=== PATIENT | male | born 1970 | race Caucasian/White ===

== ENCOUNTER 2017-04-28 22:03 | Inpatient (IN) | payer SELFPAY ==
--- NOTE | 2017-04-28 23:56 | XRay Report ---
FINAL REPORT PROCEDURE: XR FOOT 2V LT TECHNIQUE: LEFT foot radiographs, AP, lateral, and oblique views. CPT 40503 HISTORY: stepped on nail swollen foot.... x2 months COMPARISON: No prior studies are available for comparison. FINDINGS: Fracture (s) and/or Dislocation(s): None . Alignment: Normal . Joint space(s): Normal . Soft tissues: There is generalized soft tissue swelling of the forefoot.. Bone mineralization: Normal . Foreign bodies: None . Calcaneal spurring: None . IMPRESSION: There is no acute bony abnormality. There is no foreign body. There is generalized soft tissue swelling..
--- NOTE | 2017-04-29 00:04 | XRay Report ---
FINAL REPORT PROCEDURE: XR TIBIA FIBULA 2V LT TECHNIQUE: LEFT tibia and fibula radiographs, AP and lateral views. CPT 10151 HISTORY: swollen foot and leg COMPARISON: No prior studies are available for comparison. FINDINGS: Fracture (s) and/or Dislocation(s): None . Joint space(s): Normal . Soft tissues: Normal . Bone mineralization: Normal . Foreign bodies: None . IMPRESSION: Normal Examination.
[2017-04-29 00:09] LABS: BUN/Creatinine Ratio 28; Blood Urea Nitrogen 17 mg/dL (9-20); Calcium 9.1 mg/dL (8.4-10.2); Hemolysis Index 35
[2017-04-29 00:16] LABS: Basophils # (Auto) 0.1 K/mm3 (0.0-0.1); Eosinophils # (Auto) 0.2 K/mm3 (0.0-0.4); Eosinophils % (Auto) 2.2 % (0.0-4.3); Hematocrit 38.3 % (35.5-45.6); Hemoglobin 12.7 gm/dl (11.8-15.2); Lymphocytes # (Auto) 2.3 K/mm3 (1.2-5.4); Lymphocytes % (Auto) 24.8 % (13.4-35.0); Mean Corpuscular HGB Conc 33 % (32-34); Mean Corpuscular Hemoglobin 33 pg (28-32); Mean Corpuscular Volume 100 fl (84-94); Monocytes # (Auto) 0.6 K/mm3 (0.0-0.8); Monocytes % (Auto) 6.9 % (0.0-7.3); Platelet Count 217 K/mm3 (140-440); Red Blood Count 3.82 M/mm3 (3.65-5.03); Red Cell Distribution Width 15.2 % (13.2-15.2)
[2017-04-29] MEDS ORDERED: SUBLIMAZE IV ONE (06:38)
[2017-04-29] MEDS ORDERED: ZOFRAN IV ONE (06:38)
[2017-04-29] MEDS ORDERED: ZOSYN/NS 4.5GM/100ML 4.5 GM/100 ML VIAL IV ONE (06:39)
[2017-04-29] MEDS ORDERED: VANCOMYCIN/NS 1 GM/250 ML 1 GM/250 ML BAG IV ONE (06:39)
--- NOTE | 2017-04-29 06:44 | Emergency Department Report ---
HPI - General Chief Complaint: Extremity Injury, Lower Time Seen by Provider: 04/29/17 06:30 - HPI HPI: Room 4 The patient is a 47-year-old male presenting with a chief complaint of left foot pain and swelling. The patient states approximately 2 months ago he stepped on a nail through his shoe. The patient states his pain and swelling in that foot progressing since the incident occurred. 3 weeks ago the patient states he went to [facility] but states he wasn't given any prescriptions. The patient states over the past week or 2 days noticed drainage from the foot at the past 3 days he has noticed erythema. Patient admits to subjective fever. Patient gives his pain a score of 10/10 Location: Left foot Duration: [See above] Quality: Pain Severity: 10/10 Modifying factors: [see above] Context: [see above] Mode of transportation: [not driving] ED Past Medical Hx - Past Medical History Previous Medical History?: Yes Hx Hypertension: Yes Hx Diabetes: Yes - Surgical History Past Surgical History?: Yes Additional Surgical History: abd sx - Family History Family history: no significant - Social History Smoking Status: Former Smoker ED Review of Systems ROS: Stated complaint: LEFT FOOT PAIN Other details as noted in HPI Constitutional: fever Musculoskeletal: myalgia Skin: rash, change in color Physical Exam - Physical Exam Vital Signs: Vital Signs 04/28/17 04/29/17 04/29/17 22:26 04:39 04:46 Temperature 98.3 F Pulse Rate 103 H 100 H Respiratory 20 18 14 Rate Blood Pressure 153/96 131/88 O2 Sat by Pulse 98 97 Oximetry 04/29/17 04/29/17 04/29/17 05:00 05:30 06:00 Temperature Pulse Rate 90 91 H 91 H Respiratory 15 12 15 Rate Blood Pressure 150/84 151/85 141/90 O2 Sat by Pulse 96 97 97 Oximetry Physical Exam: GENERAL: The patient is well-developed well-nourished male lying on stretcher not apparent to be in acute distress. [] HEENT: Normocephalic. Atraumatic. Extraocular motions are intact. Patient has moist mucous membranes. NECK: Supple. Trachea midline CHEST/LUNGS:There is no respiratory distress noted. HEART/CARDIOVASCULAR: Regular. There is no tachycardia. There is no gallop rub or murmur. 2+ DP left foot ABDOMEN: Abdomen is soft, nontender. Patient has normal bowel sounds. There is no abdominal distention. SKIN: There is swelling and erythema of the left foot with lymphangitic streaking up the medial left silverio. There is no diaphoresis. NEURO: The patient is awake, alert, and oriented. The patient is cooperative. The patient has normal speech MUSCULOSKELETAL: There is no evidence of acute injury. ED Course Vital Signs 04/28/17 04/29/17 04/29/17 22:26 04:39 04:46 Temperature 98.3 F Pulse Rate 103 H 100 H Respiratory 20 18 14 Rate Blood Pressure 153/96 131/88 O2 Sat by Pulse 98 97 Oximetry 04/29/17 04/29/17 04/29/17 05:00 05:30 06:00 Temperature Pulse Rate 90 91 H 91 H Respiratory 15 12 15 Rate Blood Pressure 150/84 151/85 141/90 O2 Sat by Pulse 96 97 97 Oximetry ED Medical Decision Making - Lab Data Result diagrams: 04/28/17 22:45 04/28/17 22:45 - Radiology Data Radiology results: report reviewed (left lower extremity Doppler tech interpretation), image reviewed (left lower extremity Doppler) Left lower extremities Doppler-discuss with tech no evidence of acute DVT/SVT. Left inguinal lymph node enlargement - Differential Diagnosis cellulitis, lymphangitic streaking, DVT Critical care attestation.: If time is entered above; I have spent that time in minutes in the direct care of this critically ill patient, excluding procedure time. ED Disposition Clinical Impression: Cellulitis of left foot Disposition: -09 OP ADMIT IP TO THIS HOSP Is pt being admited?: Yes Does the pt Need Aspirin: No Condition: Fair Referrals: SIVAN CISNEROS MD [Primary Care Provider] - 3-5 Days Time of Disposition: 09:00 (hospitalist paged)
[2017-04-29] MEDS ORDERED: VANCOMYCIN 1,500 MG in NACL 0.9% 500 ML 500 ML IV ONE (08:00)
[2017-04-29] MEDS ORDERED: MORPHINE IV ONE (09:37)
[2017-04-29] MEDS ORDERED: VANCOMYCIN PHARMACY TO DOSE IV SCH (10:00)
[2017-04-29] MEDS ORDERED: ZOFRAN IM PRN (10:01)
[2017-04-29] MEDS ORDERED: D50W (25GM) Syringe IV PRN (10:02)
--- NOTE | 2017-04-29 10:04 | History and Physical Report ---
History of Present Illness Date of examination: 04/29/17 Date of admission: 04/29/2017 Chief complaint: left foot pain and swelling History of present illness: Patient is a 47 years old male with past medical history of diabetes mellitus and hypertension presents to the emergency department with a chief complaint of left foot pain and swelling. The pain and swelling began 2 month ago he stepped on a nail through his shoe. Patient went to [facility] 2 weeks ago but they did not gave him any prescription. Patient does not know if they gave him Tdap shot. He states over the past week 10 days he noticed pus drainage from the foot and the swelling became large with erythema.The pain was described as aching. The pain continued to gradually increase in severity to an 10/10 today to the point cannot walk without pain. The pain was exacerbated with walking or standing. Patient reported subjective fever and chills. Past History Past Medical History: diabetes, hypertension Past Surgical History: No surgical history Social history: denies: smoking, alcohol abuse Family history: hypertension Medications and Allergies Allergies Allergy/AdvReac Type Severity Reaction Status Date / Time No Known Allergies Allergy Unverified 04/28/17 22:25 Home Medications Medication Instructions Recorded Confirmed Last Taken Type No Known Home Medications [No 04/29/17 04/29/17 Unknown History Reported Home Medications] Active Meds: Active Medications Acetaminophen (Tylenol) 650 mg PO Q4H PRN PRN Reason: Pain MILD(1-3)/Fever >100.5/STINSON Bisacodyl (Dulcolax) 10 mg AK QDAY PRN PRN Reason: Constipation unrelieved by MOM Dextrose (D50w (25gm) Syringe) 50 ml IV PRN PRN PRN Reason: Hypoglycemia Enoxaparin Sodium (Lovenox) 40 mg SUB-Q QDAY RICHARD Sodium Chloride (Nacl 0.9% 1000 Ml) 1,000 mls @ 75 mls/hr IV DIRECT RICHARD Piperacillin Sod/Tazobactam Sod (Zosyn/Ns 4.5gm/100ml) 4.5 gm in 100 mls @ 200 mls/hr IV Q6HR RICHARD PRN Reason: Protocol Insulin Aspart (Novolog) 0 units SUB-Q AC RICHARD PRN Reason: Protocol Insulin Aspart (Novolog) 0 units SUB-Q QHS RICHARD PRN Reason: Protocol Morphine Sulfate (Morphine) 2 mg IV Q4H PRN PRN Reason: Pain, Moderate (4-6) Ondansetron HCl (Zofran) 4 mg IM Q4H PRN PRN Reason: Nausea And Vomiting Vancomycin HCl (Vancomycin Pharmacy To Dose) 1 each IV PKCONSULT RICHARD PRN Reason: Protocol Review of Systems Constitutional: fever, chills, sweats, fatigue, weakness, malaise, no weight loss, no weight gain Ears, nose, mouth and throat: no decreased hearing, no nose pain, no nasal congestion, no nasal discharge Cardiovascular: no palpitations, no rapid/irregular heart beat, no syncope Respiratory: no excessive sputum, no hemoptysis, no shortness of breath Genitourinary Male: no hematuria Musculoskeletal: no shooting arm pain, no arm numbness/tingling, no low back pain Integumentary: sores, other (left foot wound) Neurological: no parathesias, no numbness, no tingling, no seizures Psychiatric: no memory loss, no change in sleep habits, no sleep disturbances Endocrine: no cold intolerance, no heat intolerance, no polyphagia, no excessive thirst Hematologic/Lymphatic: no easy bruising, no easy bleeding Allergic/Immunologic: no urticaria, no allergic rhinitis Exam - Constitutional Vitals: Temp Pulse Resp BP Pulse Ox 98.3 F 92 H 13 132/84 95 04/28/17 22:26 04/29/17 08:00 04/29/17 08:42 04/29/17 08:00 04/29/17 08:00 General appearance: Present: no acute distress - EENT Eyes: Present: PERRL ENT: hearing intact - Neck Neck: Present: supple - Respiratory Respiratory effort: normal Respiratory: bilateral: CTA - Cardiovascular Rhythm: regular Heart Sounds: Present: S1 & S2 - Abdominal General gastrointestinal: Present: soft, non-tender Male genitourinary: Present: deferred - Rectal Rectal Exam: deferred - Integumentary Integumentary: Present: clear (swelling and erythema of the left foot with lymphangitic streaking up the medial left silverio) - Musculoskeletal Musculoskeletal: strength equal bilaterally - Psychiatric Psychiatric: appropriate mood/affect - Neurologic Neurologic: moves all extremities - Allied Health Allied health notes reviewed: nursing Results - Labs CBC & Chem 7: 04/28/17 22:45 04/28/17 22:45 Labs: Laboratory Last Values WBC 9.2 K/mm3 (4.5-11.0) 04/28/17 22:45 RBC 3.82 M/mm3 (3.65-5.03) 04/28/17 22:45 Hgb 12.7 gm/dl (11.8-15.2) 04/28/17 22:45 Hct 38.3 % (35.5-45.6) 04/28/17 22:45 MCV 100 fl (84-94) H 04/28/17 22:45 MCH 33 pg (28-32) H 04/28/17 22:45 MCHC 33 % (32-34) 04/28/17 22:45 RDW 15.2 % (13.2-15.2) 04/28/17 22:45 Plt Count 217 K/mm3 (140-440) 04/28/17 22:45 Lymph % (Auto) 24.8 % (13.4-35.0) 04/28/17 22:45 [place] % (Auto) 6.9 % (0.0-7.3) 04/28/17 22:45 Eos % (Auto) 2.2 % (0.0-4.3) 04/28/17 22:45 Baso % (Auto) 1.0 % (0.0-1.8) 04/28/17 22:45 Lymph # 2.3 K/mm3 (1.2-5.4) 04/28/17 22:45 [place] # 0.6 K/mm3 (0.0-0.8) 04/28/17 22:45 Eos # 0.2 K/mm3 (0.0-0.4) 04/28/17 22:45 Baso # 0.1 K/mm3 (0.0-0.1) 04/28/17 22:45 Seg Neutrophils % 65.1 % (40.0-70.0) 04/28/17 22:45 Seg Neutrophils # 6.0 K/mm3 (1.8-7.7) 04/28/17 22:45 VBG pH 7.464 (7.320-7.420) H 04/29/17 06:47 Sodium 127 mmol/L (137-145) L 04/28/17 22:45 Potassium 4.4 mmol/L (3.6-5.0) 04/28/17 22:45 Chloride 92.4 mmol/L (98-107) L 04/28/17 22:45 Carbon Dioxide 18 mmol/L (22-30) L 04/28/17 22:45 Anion Gap 21 mmol/L 04/28/17 22:45 BUN 17 mg/dL (9-20) 04/28/17 22:45 Creatinine 0.6 mg/dL (0.8-1.5) L 04/28/17 22:45 Estimated GFR > 60 ml/min 04/28/17 22:45 BUN/Creatinine Ratio 28 % 04/28/17 22:45 Glucose 483 mg/dL (75-100) H 04/28/17 22:45 Lactic Acid 1.90 mmol/L (0.7-2.0) 04/28/17 22:45 Calcium 9.1 mg/dL (8.4-10.2) 04/28/17 22:45 Assessment and Plan Assessment and plan: Patient is a 47 years old male with past medical history of diabetes mellitus and hypertension presents to the emergency department with a chief complaint of left foot pain and swelling. The pain and swelling began 2 month ago he stepped on a nail through his shoe. Left foot cellulitis Xray of the foot showed soft tissue swelling, no acute bony abnormality. There is no foreign body. with copious drainage of pus Infectious disease consult Initiated with empiric IV Zosyn and vancomycin IV fluid hydration Diabetes mellitus Acute check before meals and at bedtime Sliding scale insulin/NovoLog ADA consistent carbohydrate diet Hyponatremia Most likely due to hyperglycemia IV fluid that will correct it Closely monitor electrolytes DVT prophylaxis Lovenox Advance Directives: Yes VTE prophylaxis?: Chemical Contraindication Mechanical VTE Prophylaxis: Treatment Not Indicated Plan of care discussed with patient/family: Yes
[2017-04-29] MEDS ORDERED: DULCOLAX PR PRN (11:00)
[2017-04-29] MEDS: NOVOLOG SUB-Q SCH ×3 (11:15→23:03)
[2017-04-29] MEDS: LOVENOX SUB-Q SCH (11:15)
[2017-04-29] MEDS ORDERED: BOOSTRIX IM ONE (12:00)
[2017-04-29] MEDS ORDERED: APRESOLINE IV PRN (12:01)
[2017-04-29] MEDS: ZOSYN/NS 4.5GM/100ML 4.5 GM/100 ML VIAL IV SCH ×2 (13:25→17:09)
[2017-04-29] MEDS: MORPHINE IV PRN ×2 (17:20→23:07)
[2017-04-29] MEDS: NACL 0.9% 1000 ML 1,000 ML IV SCH (17:34)
[2017-04-29] MEDS: VANCOMYCIN/NS 1 GM/250 ML 1 GM/250 ML BAG IV SCH (20:25)
[2017-04-30] MEDS: ZOSYN/NS 4.5GM/100ML 4.5 GM/100 ML VIAL IV SCH ×4 (01:19→17:54)
[2017-04-30] MEDS: MORPHINE IV PRN ×3 (06:21→19:36)
[2017-04-30] MEDS: NOVOLOG SUB-Q SCH ×4 (06:41→22:25)
[2017-04-30] MEDS: VANCOMYCIN/NS 1 GM/250 ML 1 GM/250 ML BAG IV SCH ×2 (07:53→19:41)
[2017-04-30 08:50] LABS: Hemoglobin 11.5 gm/dl (11.8-15.2); Mean Corpuscular HGB Conc 35 % (32-34); Mean Corpuscular Hemoglobin 34 pg (28-32); Mean Corpuscular Volume 99 fl (84-94); Platelet Count 223 K/mm3 (140-440); Red Blood Count 3.33 M/mm3 (3.65-5.03); Red Cell Distribution Width 14.7 % (13.2-15.2)
[2017-04-30 09:07] LABS: BUN/Creatinine Ratio 18; Blood Urea Nitrogen 11 mg/dL (9-20); Calcium 8.7 mg/dL (8.4-10.2); Hemolysis Index 2
[2017-04-30] MEDS: NORVASC PO SCH (09:18)
[2017-04-30] MEDS: LOVENOX SUB-Q SCH (09:19)
[2017-04-30] MEDS: NACL 0.9% 1000 ML 1,000 ML IV SCH (09:23)
--- NOTE | 2017-04-30 09:45 | Consultation ---
History of Present Illness - Reason for Consult Consult date: 04/30/17 diabetic foot infection Requesting physician: NIHARIKA DE LEÓN - History of Present Illness 47 years old male with poorly controlled diabetes admitted on 04/29/2017 due to 2 months history of progressive left foot swelling. Patient reports that 2 months ago his stepped on a nail through his shoe. He experienced a small wound that has been draining on and off. However, in the last week, foot has become swollen, tender, and drainage has been evident. See also been complaining of subjective fever. He uses insulin however he does not have a glucometer at home. In the emergency room, initial temperature was 98.3, heart rate 103, blood pressure 153, white count 9.2. Creatinine 0.6. Lactic acid 1.9. Glucose 483. XR foot no osteomyelitis. Microbiology: Blood cultures: 04/29 ngtd Urine cultures: Current Antimicrobials: Zosyn 04/29 Vancomycin 04/29 Previous Antimicrobials: Past History Past Medical History: diabetes, hypertension Past Surgical History: No surgical history Social history: denies: smoking, alcohol abuse Family history: hypertension Medications and Allergies Allergies Allergy/AdvReac Type Severity Reaction Status Date / Time No Known Allergies Allergy Unverified 04/28/17 22:25 Home Medications Medication Instructions Recorded Confirmed Last Taken Type No Known Home Medications [No 04/29/17 04/29/17 Unknown History Reported Home Medications] Active Meds: Active Medications Acetaminophen (Tylenol) 650 mg PO Q4H PRN PRN Reason: Pain MILD(1-3)/Fever >100.5/STINSON Amlodipine Besylate (Norvasc) 10 mg PO QDAY [facility] Last Admin: 04/30/17 09:18 Dose: 10 mg Bisacodyl (Dulcolax) 10 mg OR QDAY PRN PRN Reason: Constipation unrelieved by MOM Dextrose (D50w (25gm) Syringe) 50 ml IV PRN PRN PRN Reason: Hypoglycemia Enoxaparin Sodium (Lovenox) 40 mg SUB-Q QDAY [facility] Last Admin: 04/30/17 09:19 Dose: 40 mg Hydralazine HCl (Apresoline) 10 mg IV Q4H PRN PRN Reason: Blood Pressure Sodium Chloride (Nacl 0.9% 1000 Ml) 1,000 mls @ 75 mls/hr IV DIRECT [facility] Last Admin: 04/30/17 09:23 Dose: 75 mls/hr Piperacillin Sod/Tazobactam Sod (Zosyn/Ns 4.5gm/100ml) 4.5 gm in 100 mls @ 200 mls/hr IV Q6HR [facility] PRN Reason: Protocol Last Admin: 04/30/17 05:06 Dose: 200 mls/hr Vancomycin HCl (Vancomycin/Ns 1 Gm/250 Ml) 1 gm in 250 mls @ 166.667 mls/hr IV Q12H [facility] Last Admin: 04/30/17 07:53 Dose: 166.667 mls/hr Influenza Virus Vaccine Quadrival (Fluarix Quad [id number](36 Mos+) 0.5 ml IM .ONCE ONE Stop: 04/30/17 12:01 Insulin Aspart (Novolog) 0 units SUB-Q AC [facility] PRN Reason: Protocol Last Admin: 04/30/17 06:41 Dose: 10 units Insulin Aspart (Novolog) 0 units SUB-Q QHS [facility] PRN Reason: Protocol Last Admin: 04/29/17 23:03 Dose: 6 units Insulin Human Isoph/Insulin Regular (Novolin 70/30) 12 unit SUB-Q BIDDIAB [facility] Last Admin: 04/30/17 09:18 Dose: 12 unit Morphine Sulfate (Morphine) 2 mg IV Q4H PRN PRN Reason: Pain, Moderate (4-6) Last Admin: 04/30/17 06:21 Dose: 2 mg Ondansetron HCl (Zofran) 4 mg IM Q4H PRN PRN Reason: Nausea And Vomiting Pneumococcal Polyvalent Vaccine (Pneumovax 23) 0.5 ml IM .ONCE ONE Stop: 04/30/17 12:01 Vancomycin HCl (Vancomycin Pharmacy To Dose) 1 each IV PKCONSULT [facility] PRN Reason: Protocol Review of Systems All systems: negative (as per HPI rest neg) Physical Examination - Physical Exam Narrative exam: General appearance: Alert in NAD, conversant Eyes: anicteric sclerae, moist conjunctivae; no lid-lag; PERRLA HENT: Atraumatic; oropharynx clear Neck: Trachea midline; supple, no thyromegaly or lymphadenopathy Lungs: CTA CV: RRR Abdomen: Soft, non-tender; no masses or hepatosplenomegaly Extremities: left foot mid sole edema/tenderness with puncture wound draining purulence, Fourth and fifth toe with interdigital ulcers/maceration Skin: Normal temperature, turgor and texture; no rash, ulcers or subcutaneous nodules Psych: Appropriate affect, alert and oriented to person, place and time. Neuro: alert and oriented x 3. Moving all extermities Lines: No CVL / PICC - Constitutional Vitals: Vital Signs Temp Pulse Resp BP Pulse Ox 98.2 F 83 20 148/90 97 04/30/17 07:23 04/30/17 07:23 04/30/17 07:23 04/30/17 07:23 04/30/17 07:23 Temperature -Last 24 Hours Temperature 98.2 F Temperature 99.5 F Temperature 98.6 F Temperature 99.2 F Temperature 98.3 F Temperature 98.3 F Results - Labs CBC & Chem 7: 04/30/17 08:17 04/30/17 08:17 Labs: Abnormal lab results 04/29/17 04/29/17 04/30/17 Range/Units 16:33 21:28 05:49 RBC (3.65-5.03) M/mm3 Hgb (11.8-15.2) gm/dl Hct (35.5-45.6) % MCV (84-94) fl MCH (28-32) pg MCHC (32-34) % Sodium (137-145) mmol/L Creatinine (0.8-1.5) mg/dL Glucose (75-100) mg/dL POC Glucose 429 H 295 H (70-105) Hemoglobin A1c 11.4 H (4-6) % 04/30/17 04/30/17 04/30/17 Range/Units 06:37 08:17 08:17 RBC 3.33 L (3.65-5.03) M/mm3 Hgb 11.5 L (11.8-15.2) gm/dl Hct 33.0 L (35.5-45.6) % MCV 99 H (84-94) fl MCH 34 H (28-32) pg MCHC 35 H (32-34) % Sodium 134 L D (137-145) mmol/L Creatinine 0.6 L (0.8-1.5) mg/dL Glucose 314 H (75-100) mg/dL POC Glucose 387 H (70-105) Hemoglobin A1c (4-6) % Assessment and Plan Assessment: 1) Left diabetic foot puncture ulcer and forth and fifth toes ulcers: should r/ o osteomyelitis / abscess 2) DM: uncontrolled A1C=11 Plan: -follow-up blood cultures, UA, urine culture -check CRP -Wound care doctor Dr Pradhan -send deep wound cultures -check foot MRI -arterial US -continue zosyn and vancomycin for now Thank you NIMISHA De León for your consultation, will follow up with you. Lovely Avila MD Infectious Diseases Specialist [facility] M [phone] O [phone]
--- NOTE | 2017-04-30 11:34 | Progress Note ---
Assessment and Plan Assessment and plan: Left foot infected diabetic foot ulcer. To rule out osteomyelitis. Contunue Zosyn and Vancomycin. ID Physicain following Diabetes mellitus type 2. Check fingerstick Qac and hs hypertension, BP borderline on Norvasc 10 mg po daily DVT prophylaxis with Lovenox. Full code status History Interval history: Left foot ulcer with pain and swelling, no fever Hospitalist Physical - Physical exam Narrative exam: GEN APPEARANCE : Not in acute distress HEENT: Normocephalic, Atraumatic NECK : supple, no JVD LUNGS: Clear to auscultation bilaterally, no rales, no wheeze HEART: S1 and S2 regular, no murmurs, rubs or gallop, ABD: Soft, non tender, non distended, normal bowel sounds EXT: Left foot covered with dressingg, No edema, no clubbing, no cyanosis NEURO: Awake,alert, oriented x 3 - Constitutional Vitals: Temp Pulse Resp BP Pulse Ox 98.2 F 83 20 148/90 97 04/30/17 07:23 04/30/17 07:23 04/30/17 07:23 04/30/17 07:23 04/30/17 07:23 General appearance: Present: no acute distress Results - Labs CBC & Chem 7: 04/30/17 08:17 04/30/17 08:17 Labs: Laboratory Last Values WBC 9.4 K/mm3 (4.5-11.0) 04/30/17 08:17 RBC 3.33 M/mm3 (3.65-5.03) L 04/30/17 08:17 Hgb 11.5 gm/dl (11.8-15.2) L 04/30/17 08:17 Hct 33.0 % (35.5-45.6) L 04/30/17 08:17 MCV 99 fl (84-94) H 04/30/17 08:17 MCH 34 pg (28-32) H 04/30/17 08:17 MCHC 35 % (32-34) H 04/30/17 08:17 RDW 14.7 % (13.2-15.2) 04/30/17 08:17 Plt Count 223 K/mm3 (140-440) 04/30/17 08:17 Lymph % (Auto) 24.8 % (13.4-35.0) 04/28/17 22:45 [place] % (Auto) 6.9 % (0.0-7.3) 04/28/17 22:45 Eos % (Auto) 2.2 % (0.0-4.3) 04/28/17 22:45 Baso % (Auto) 1.0 % (0.0-1.8) 04/28/17 22:45 Lymph # 2.3 K/mm3 (1.2-5.4) 04/28/17 22:45 [place] # 0.6 K/mm3 (0.0-0.8) 04/28/17 22:45 Eos # 0.2 K/mm3 (0.0-0.4) 04/28/17 22:45 Baso # 0.1 K/mm3 (0.0-0.1) 04/28/17 22:45 Seg Neutrophils % 65.1 % (40.0-70.0) 04/28/17 22:45 Seg Neutrophils # 6.0 K/mm3 (1.8-7.7) 04/28/17 22:45 VBG pH 7.464 (7.320-7.420) H 04/29/17 06:47 Sodium 134 mmol/L (137-145) L D 04/30/17 08:17 Potassium 3.7 mmol/L (3.6-5.0) 04/30/17 08:17 Chloride 98.9 mmol/L (98-107) 04/30/17 08:17 Carbon Dioxide 22 mmol/L (22-30) 04/30/17 08:17 Anion Gap 17 mmol/L 04/30/17 08:17 BUN 11 mg/dL (9-20) 04/30/17 08:17 Creatinine 0.6 mg/dL (0.8-1.5) L 04/30/17 08:17 Estimated GFR > 60 ml/min 04/30/17 08:17 BUN/Creatinine Ratio 18 % 04/30/17 08:17 Glucose 314 mg/dL (75-100) H 04/30/17 08:17 POC Glucose 230 (70-105) H 04/30/17 11:26 Hemoglobin A1c 11.4 % (4-6) H 04/30/17 05:49 Lactic Acid 1.90 mmol/L (0.7-2.0) 04/28/17 22:45 Calcium 8.7 mg/dL (8.4-10.2) 04/30/17 08:17 C-Reactive Protein 1.00 mg/dL (0.00-1.30) 04/30/17 08:17
[2017-04-30] MEDS ORDERED: Fluarix Quad 2017-2018(36 MOS+ IM ONE (12:00)
[2017-04-30] MEDS ORDERED: PNEUMOVAX 23 IM ONE (12:00)
--- NOTE | 2017-04-30 12:47 | Consultation ---
History of Present Illness Consult date: 04/30/17 Reason for consult: other (Diabetic infection, left foot) - History of present illness History of present illness: Asked to see re CC. Past History Past Medical History: diabetes, hypertension Past Surgical History: No surgical history Social history: denies: smoking, alcohol abuse Family history: hypertension Medications and Allergies Allergies Allergy/AdvReac Type Severity Reaction Status Date / Time No Known Allergies Allergy Unverified 04/28/17 22:25 Home Medications Medication Instructions Recorded Confirmed Last Taken Type No Known Home Medications [No 04/29/17 04/29/17 Unknown History Reported Home Medications] Active Meds: Active Medications Acetaminophen (Tylenol) 650 mg PO Q4H PRN PRN Reason: Pain MILD(1-3)/Fever >100.5/[place] Amlodipine Besylate (Norvasc) 10 mg PO QDAY [facility] Last Admin: 04/30/17 09:18 Dose: 10 mg Bisacodyl (Dulcolax) 10 mg DE QDAY PRN PRN Reason: Constipation unrelieved by MOM Dextrose (D50w (25gm) Syringe) 50 ml IV PRN PRN PRN Reason: Hypoglycemia Enoxaparin Sodium (Lovenox) 40 mg SUB-Q QDAY [facility] Last Admin: 04/30/17 09:19 Dose: 40 mg Hydralazine HCl (Apresoline) 10 mg IV Q4H PRN PRN Reason: Blood Pressure Sodium Chloride (Nacl 0.9% 1000 Ml) 1,000 mls @ 75 mls/hr IV DIRECT [facility] Last Admin: 04/30/17 09:23 Dose: 75 mls/hr Piperacillin Sod/Tazobactam Sod (Zosyn/Ns 4.5gm/100ml) 4.5 gm in 100 mls @ 200 mls/hr IV Q6HR [facility]ARD PRN Reason: Protocol Last Admin: 04/30/17 12:16 Dose: 200 mls/hr Vancomycin HCl (Vancomycin/Ns 1 Gm/250 Ml) 1 gm in 250 mls @ 166.667 mls/hr IV Q12H [facility] Last Admin: 04/30/17 07:53 Dose: 166.667 mls/hr Insulin Aspart (Novolog) 0 units SUB-Q AC [facility] PRN Reason: Protocol Last Admin: 04/30/17 12:17 Dose: 4 units Insulin Aspart (Novolog) 0 units SUB-Q QHS [facility] PRN Reason: Protocol Last Admin: 04/29/17 23:03 Dose: 6 units Insulin Human Isoph/Insulin Regular (Novolin 70/30) 12 unit SUB-Q BIDDIAB [facility] Last Admin: 04/30/17 09:18 Dose: 12 unit Morphine Sulfate (Morphine) 2 mg IV Q4H PRN PRN Reason: Pain, Moderate (4-6) Last Admin: 04/30/17 12:15 Dose: 2 mg Ondansetron HCl (Zofran) 4 mg IM Q4H PRN PRN Reason: Nausea And Vomiting Vancomycin HCl (Vancomycin Pharmacy To Dose) 1 each IV PKCONSULT [facility] PRN Reason: Protocol Review of Systems All systems: negative Exam Vital Signs Temp Pulse Resp BP Pulse Ox 98.3 F 103 H 20 153/96 98 04/28/17 22:26 04/28/17 22:26 04/28/17 22:26 04/28/17 22:26 04/28/17 22:26 - Extremities Extremities: abnormal (Left foot is edematous. There is a drop of pus exuding from the dorsum of the left foot just proximal to the 5th MTP joint. The exudation of pus cannot be increased with pressure on the 4th-5th interphalangeal space or with pressure on the plantar aspect of the foot. DP pulse is 2+.) Results - Labs 04/30/17 08:17 04/30/17 08:17 Abnormal lab results 04/29/17 04/29/17 04/30/17 Range/Units 16:33 21:28 05:49 RBC (3.65-5.03) M/mm3 Hgb (11.8-15.2) gm/dl Hct (35.5-45.6) % MCV (84-94) fl MCH (28-32) pg MCHC (32-34) % Sodium (137-145) mmol/L Creatinine (0.8-1.5) mg/dL Glucose (75-100) mg/dL POC Glucose 429 H 295 H (70-105) Hemoglobin A1c 11.4 H (4-6) % 04/30/17 04/30/17 04/30/17 Range/Units 06:37 08: 08:17 RBC 3.33 L (3.65-5.03) M/mm3 Hgb 11.5 L (11.8-15.2) gm/dl Hct 33.0 L (35.5-45.6) % MCV 99 H (84-94) fl MCH 34 H (28-32) pg MCHC 35 H (32-34) % Sodium 134 L D (137-145) mmol/L Creatinine 0.6 L (0.8-1.5) mg/dL Glucose 314 H (75-100) mg/dL POC Glucose 387 H (70-105) Hemoglobin A1c (4-6) % 04/30/17 Range/Units 11:26 RBC (3.65-5.03) M/mm3 Hgb (11.8-15.2) gm/dl Hct (35.5-45.6) % MCV (84-94) fl MCH (28-32) pg MCHC (32-34) % Sodium (137-145) mmol/L Creatinine (0.8-1.5) mg/dL Glucose (75-100) mg/dL POC Glucose 230 H (70-105) Hemoglobin A1c (4-6) % Diabetes panel 04/30/17 04/30/17 Range/Units 05:49 08:17 Sodium 134 L D (137-145) mmol/L Potassium 3.7 (3.6-5.0) mmol/L Chloride 98.9 (98-107) mmol/L Carbon Dioxide 22 (22-30) mmol/L BUN 11 (9-20) mg/dL Creatinine 0.6 L (0.8-1.5) mg/dL Glucose 314 H (75-100) mg/dL Hemoglobin A1c 11.4 H (4-6) % Calcium 8.7 (8.4-10.2) mg/dL Calcium panel 04/30/17 Range/Units 08:17 Calcium 8.7 (8.4-10.2) mg/dL Pituitary panel 04/30/17 Range/Units 08:17 Sodium 134 L D (137-145) mmol/L Potassium 3.7 (3.6-5.0) mmol/L Chloride 98.9 (98-107) mmol/L Carbon Dioxide 22 (22-30) mmol/L BUN 11 (9-20) mg/dL Creatinine 0.6 L (0.8-1.5) mg/dL Glucose 314 H (75-100) mg/dL Calcium 8.7 (8.4-10.2) mg/dL Adrenal panel 04/30/17 Range/Units 08:17 Sodium 134 L D (137-145) mmol/L Potassium 3.7 (3.6-5.0) mmol/L Chloride 98.9 (98-107) mmol/L Carbon Dioxide 22 (22-30) mmol/L BUN 11 (9-20) mg/dL Creatinine 0.6 L (0.8-1.5) mg/dL Glucose 314 H (75-100) mg/dL Calcium 8.7 (8.4-10.2) mg/dL - Imaging Additional studies: Lower extremity arterial dopplers were just performed and were unremarkable. He is now going for a MRI of his left foot. Assessment and Plan - Patient Problems (1) Cellulitis of left foot Current Visit: Yes Status: Acute Plan to address problem: 1) Agree with left foot MRI 2) Agree with ID consult 3) Strict DM control 4) Further recommendations to follow pending result of MRI.
[2017-05-01] MEDS: NACL 0.9% 1000 ML 1,000 ML IV SCH ×2 (00:48→22:45)
[2017-05-01] MEDS: ZOSYN/NS 4.5GM/100ML 4.5 GM/100 ML VIAL IV SCH ×5 (00:49→23:01)
[2017-05-01] MEDS: MORPHINE IV PRN (05:44)
[2017-05-01] MEDS: NOVOLOG SUB-Q SCH ×4 (07:30→21:27)
--- NOTE | 2017-05-01 08:55 | Magnetic Resonance Report ---
FINAL REPORT EXAM: MR LE NONJOINT LT WO/W CON HISTORY: left foot diabetic wound eval for osteomyelitis TECHNIQUE: Multisequence, multiplanar MR imaging is obtained through left foot prior and subsequent to intravenous administration of gadolinium contrast PRIORS: Left foot radiographs 04/28/2017 FINDINGS: Extensive edema and enhancement at the plantar aspect of the lateral forefoot is most focal subjacent to the 4th and 5th metatarsophalangeal joints and proximal phalanges and extends into the dorsal soft tissues through the 4th and 5th webspace. In the 4th proximal phalanx there is significantly decreased T1 weighted signal, which is nearly confluent with surrounding edema on axial series 7, image 9. Enhancement is seen this region on axial series 9, image 10. Similar but slightly more mild findings are present in the 5th proximal phalanx. No focal organized soft tissue abscess. At the lateral aspect of the talar dome there is a focal 3 x 4 millimeter area of edema. The overlying chondral surface appears intact, and there is no undermining fluid signal. There are multiple ill-defined areas of edema in the midfoot and hindfoot including in the lateral calcaneus, the majority of the navicular bone, minimally within the cuboid and scattered within the cuneiforms. No confluent low T1 weighted signal is seen in the bones of the midfoot and hindfoot. The peroneal and extensor tendons, and the tendons of the tarsal tunnel appear intact. IMPRESSION: Left 4th and 5th toe osteomyelitis. There is phlegmonous fluid at the plantar aspect of the 4th and 5th toes extending into the dorsal soft tissues through the webspace. No focal organized fluid collection to suggest soft tissue abscess at this time. Scattered mild areas of midfoot and hindfoot edema may be stress related from gait disturbance or secondary to diabetic neuropathy or angiopathy. Lateral talar dome osteochondral lesion measuring 3 x 4 millimeters with low grade morphology. Notification initiated via [employer] learning support resource room teacher immediately following this dictation on 05/01/2017.
[2017-05-01] MEDS: VANCOMYCIN/NS 1 GM/250 ML 1 GM/250 ML BAG IV SCH ×2 (08:57→17:59)
[2017-05-01] MEDS: LOVENOX SUB-Q SCH (09:02)
[2017-05-01] MEDS: NORVASC PO SCH (09:02)
--- NOTE | 2017-05-01 10:48 | Progress Note ---
Assessment and Plan Assessment: 1) Left diabetic foot puncture ulcer and forth and fifth toes ulcers/ ostemyelitis -MRI showed 4&5th toes osteomyelitis and small phlegmonous collection plantar to the 4th/5th otes extending to soft tissue webs spaces -CRP=1 -Art US normal 2) DM: uncontrolled A1C=11 3) Non insurance status Plan: -appreciate Wound care doctor Dr Lorne shabazz -as possible opbtain deep tissue cultures -continue zosyn and vancomycin for now -PICC line -upon discharge will arrange - zosyn 4.5 g IV q 8h and zyvox 600 mg PO q12h total 4 weeks until 05/27/17. If a tissue culture isolates an organism we will be able to narrow down. Appreciate case management input. I will be off tomorrow, but available over the phone. Thank you NIMISHA Posadas for your consultation, will follow up with you. Lovely Avila MD Infectious Diseases Specialist [facility], [place] [facility] ([facility]) M [phone] O [phone] Subjective Date of service: 05/01/17 Principal diagnosis: diabetic foot infection Interval history: Feels ok still c/o left foot throbbing pain. No fever. Microbiology: Blood cultures: 04/29 ngtd Urine cultures: Current Antimicrobials: Zosyn 04/29 Vancomycin 04/29 Objective - Exam Narrative Exam: General appearance: Alert in NAD, conversant Eyes: anicteric sclerae, moist conjunctivae; no lid-lag; PERRLA HENT: Atraumatic; oropharynx clear Neck: Trachea midline; supple, no thyromegaly or lymphadenopathy Lungs: CTA CV: RRR Abdomen: Soft, non-tender; no masses or hepatosplenomegaly Extremities: left foot mid sole edema/tenderness with puncture wound draining purulence, Fourth and fifth toe with interdigital ulcers/maceration Skin: Normal temperature, turgor and texture; no rash, ulcers or subcutaneous nodules Psych: Appropriate affect, alert and oriented to person, place and time. Neuro: alert and oriented x 3. Moving all extermities Lines: No CVL / PICC - Constitutional Vitals: Vital Signs Temp Pulse Resp BP Pulse Ox 98.6 F 105 H 20 147/85 98 05/01/17 07:51 05/01/17 07:51 05/01/17 07:51 05/01/17 07:51 05/01/17 07:51 Temperature -Last 24 Hours Temperature 98.6 F Temperature 98.7 F Temperature 97.9 F - Labs CBC & Chem 7: 04/30/17 08:17 04/30/17 08:17 Labs: Abnormal lab results 04/30/17 04/30/17 04/30/17 Range/Units 11:26 17:42 21:27 POC Glucose 230 H 343 H 273 H (70-105) 05/01/17 Range/Units 05:42 POC Glucose 175 H (70-105)
--- NOTE | 2017-05-01 13:11 | Progress Note ---
Assessment and Plan Assessment and plan: Left foot infected diabetic foot ulcer and osteomyelitis 4th and 5th toes. MRI revealed osteomyelitis. Continue Zosyn and Vancomycin. ID Physicain and Dr. Pradhan, surgeon following. Diabetes mellitus type 2 uncontrolled. Will increase to Novolin 70/30 to 16 Units bid from 12 Units bid. Continue to check fingerstick Qac and hs Hypertension. Continue Norvasc 10 mg po daily. May add a second agent if BP not controlled DVT prophylaxis with Lovenox. Full code status History Interval history: Left foot ulcer with pain and swelling, no fever Hospitalist Physical - Physical exam Narrative exam: GEN APPEARANCE : Not in acute distress,lying in bed HEENT: Normocephalic, Atraumatic NECK : supple, no JVD LUNGS: Clear to auscultation bilaterally, no rales, no wheeze HEART: S1 and S2 regular, no murmurs, rubs or gallop, ABD: Soft, non tender, non distended, normal bowel sounds EXT: Left foot swollen, ulcer, no clubbing, no cyanosis NEURO: Awake,alert, oriented x 3. No focal neurological signs - Constitutional Vitals: Temp Pulse Resp BP Pulse Ox 98.6 F 105 H 20 147/85 98 05/01/17 07:51 05/01/17 07:51 05/01/17 07:51 05/01/17 07:51 05/01/17 07:51 Results - Labs CBC & Chem 7: 04/30/17 08:17 04/30/17 08:17 Labs: Laboratory Last Values WBC 9.4 K/mm3 (4.5-11.0) 04/30/17 08:17 RBC 3.33 M/mm3 (3.65-5.03) L 04/30/17 08:17 Hgb 11.5 gm/dl (11.8-15.2) L 04/30/17 08:17 Hct 33.0 % (35.5-45.6) L 04/30/17 08:17 MCV 99 fl (84-94) H 04/30/17 08:17 MCH 34 pg (28-32) H 04/30/17 08:17 MCHC 35 % (32-34) H 04/30/17 08:17 RDW 14.7 % (13.2-15.2) 04/30/17 08:17 Plt Count 223 K/mm3 (140-440) 04/30/17 08:17 Lymph % (Auto) 24.8 % (13.4-35.0) 04/28/17 22:45 [place] % (Auto) 6.9 % (0.0-7.3) 04/28/17 22:45 Eos % (Auto) 2.2 % (0.0-4.3) 04/28/17 22:45 Baso % (Auto) 1.0 % (0.0-1.8) 04/28/17 22:45 Lymph # 2.3 K/mm3 (1.2-5.4) 04/28/17 22:45 [place] # 0.6 K/mm3 (0.0-0.8) 04/28/17 22:45 Eos # 0.2 K/mm3 (0.0-0.4) 04/28/17 22:45 Baso # 0.1 K/mm3 (0.0-0.1) 04/28/17 22:45 Seg Neutrophils % 65.1 % (40.0-70.0) 04/28/17 22:45 Seg Neutrophils # 6.0 K/mm3 (1.8-7.7) 04/28/17 22:45 VBG pH 7.464 (7.320-7.420) H 04/29/17 06:47 Sodium 134 mmol/L (137-145) L D 04/30/17 08:17 Potassium 3.7 mmol/L (3.6-5.0) 04/30/17 08:17 Chloride 98.9 mmol/L (98-107) 04/30/17 08:17 Carbon Dioxide 22 mmol/L (22-30) 04/30/17 08:17 Anion Gap 17 mmol/L 04/30/17 08:17 BUN 11 mg/dL (9-20) 04/30/17 08:17 Creatinine 0.6 mg/dL (0.8-1.5) L 04/30/17 08:17 Estimated GFR > 60 ml/min 04/30/17 08:17 BUN/Creatinine Ratio 18 % 04/30/17 08:17 Glucose 314 mg/dL (75-100) H 04/30/17 08:17 POC Glucose 254 (70-105) H 05/01/17 11:43 Hemoglobin A1c 11.4 % (4-6) H 04/30/17 05:49 Lactic Acid 1.90 mmol/L (0.7-2.0) 04/28/17 22:45 Calcium 8.7 mg/dL (8.4-10.2) 04/30/17 08:17 C-Reactive Protein 1.00 mg/dL (0.00-1.30) 04/30/17 08:17 Vancomycin Trough 7.1 ug/mL (5.0-20.0) 05/01/17 06:45
--- NOTE | 2017-05-01 19:02 | Progress Note ---
Assessment and Plan - Patient Problems (1) Cellulitis of left foot Current Visit: Yes Status: Acute Plan to address problem: 1) Continue elevation 2) Strict DM control 3) Continue antibiotics Subjective Date of service: 05/01/17 Patient Reports: Positive: no new complaints Objective Vital Signs - 12hr 05/01/17 05/01/17 07:51 15:56 Temperature 98.6 F 98.4 F Pulse Rate 105 H 89 Respiratory 20 20 Rate Blood Pressure 147/85 133/73 O2 Sat by Pulse 98 100 Oximetry - Musculoskeletal other (Left foot exam is without change.) - Labs 04/30/17 08:17 04/30/17 08:17 - Imaging Additional Studies: MRI of left foot done yesterday was reviewed.
[2017-05-02] MEDS: VANCOMYCIN/NS 1 GM/250 ML 1 GM/250 ML BAG IV SCH ×3 (01:31→17:02)
[2017-05-02] MEDS: ZOSYN/NS 4.5GM/100ML 4.5 GM/100 ML VIAL IV SCH ×4 (05:46→23:50)
[2017-05-02 06:51] LABS: Hematocrit 32.7 % (35.5-45.6); Hemoglobin 11.1 gm/dl (11.8-15.2); Mean Corpuscular HGB Conc 34 % (32-34); Mean Corpuscular Hemoglobin 33 pg (28-32); Mean Corpuscular Volume 98 fl (84-94); Platelet Count 245 K/mm3 (140-440); Red Blood Count 3.33 M/mm3 (3.65-5.03); Red Cell Distribution Width 14.8 % (13.2-15.2)
[2017-05-02 07:05] LABS: BUN/Creatinine Ratio 26; Blood Urea Nitrogen 13 mg/dL (9-20); Calcium 8.6 mg/dL (8.4-10.2); Hemolysis Index 5
[2017-05-02] MEDS: NOVOLOG SUB-Q SCH ×4 (08:09→22:47)
[2017-05-02] MEDS: LOVENOX SUB-Q SCH (10:15)
[2017-05-02] MEDS: NORVASC PO SCH (10:15)
--- NOTE | 2017-05-02 11:30 | Progress Note ---
Assessment and Plan Left foot infected diabetic foot ulcer and osteomyelitis 4th and 5th toes. MRI revealed osteomyelitis. Continue Zosyn and Vancomycin. ID Physicain and Dr. Pradhan, surgeon following. Diabetes mellitus type 2 uncontrolled. cont Novolin 70/30 to 22 Units bid . Continue acuchecks AC & HS with ISS Hypertension. Continue Norvasc 10 mg po daily. unclear why patient is not on ACEI or ARB. ( no hx of allergy)will start on lisinopril 10 mg Normocytic anemia: H&H stable DVT prophylaxis with Lovenox. Subjective Date of service: 05/02/17 Principal diagnosis: diabetic foot infection Interval history: Patient is awake and alert Offers no specific complaints except mild pain in the left foot ID and general surgery note reviewed and appreciated Objective - Constitutional Vitals: Vital Signs - 12hr 05/02/17 08:06 Temperature 98.3 F Pulse Rate 81 Respiratory 20 Rate Blood Pressure 158/93 O2 Sat by Pulse 97 Oximetry General appearance: Present: no acute distress - EENT Eyes: PERRL, EOM intact ENT: hearing intact, clear oral mucosa - Neck Neck: supple, normal ROM, no masses or JVD - Respiratory Respiratory effort: normal Respiratory: bilateral: CTA - Cardiovascular Rhythm: regular Heart Sounds: Present: S1 & S2 Extremity abnormal: edema (left pedal edema and open wound under left fourth toe with a dressing) - Gastrointestinal General gastrointestinal: Present: soft, non-tender. Absent: hepatomegaly, splenomegaly Rectal Exam: deferred - Neurologic Neurologic: CNII-XII intact, no focal deficits - Psychiatric Psychiatric: appropriate mood/affect - Labs CBC & Chem 7: 05/02/17 05:28 05/02/17 05:28 Labs: Abnormal lab results 05/01/17 05/01/17 05/01/17 Range/Units 11:43 16:06 21:20 RBC (3.65-5.03) M/mm3 Hgb (11.8-15.2) gm/dl Hct (35.5-45.6) % MCV (84-94) fl MCH (28-32) pg Creatinine (0.8-1.5) mg/dL Glucose (75-100) mg/dL POC Glucose 254 H 338 H 142 H (70-105) 05/02/17 05/02/17 05/02/17 Range/Units 05:28 05:28 06:11 RBC 3.33 L (3.65-5.03) M/mm3 Hgb 11.1 L (11.8-15.2) gm/dl Hct 32.7 L (35.5-45.6) % MCV 98 H (84-94) fl MCH 33 H (28-32) pg Creatinine 0.5 L (0.8-1.5) mg/dL Glucose 307 H (75-100) mg/dL POC Glucose 316 H (70-105)
[2017-05-02] MEDS: MORPHINE IV PRN (12:51)
--- NOTE | 2017-05-02 15:12 | Vascular Lab Report ---
LOWER EXTREMITY ARTERIAL DUPLEX: REASON FOR EXAM: Diabetic wounds. COMMENTS ON THE RIGHT: Triphasic waveforms are seen proximally. Triphasic waveforms are seen distally. No significant velocity gradients are identified. No focal significant plaque is identified. Findings are consistent with normal perfusion. Findings are consistent with the ability to heal distal wounds. COMMENTS ON THE LEFT: Triphasic waveforms are seen proximally. Triphasic waveforms are seen distally. No significant velocity gradients are identified. No focal significant plaque is identified. Findings are consistent with normal perfusion. Findings are consistent with the ability to heal distal wounds. IMPRESSION: RIGHT: Essentially normal arterial flow. LEFT:Essentially normal arterial flow.
[2017-05-02] MEDS: NACL 0.9% 1000 ML 1,000 ML IV SCH (17:02)
[2017-05-02] MEDS: TYLENOL PO PRN (23:02)
[2017-05-03] MEDS: VANCOMYCIN/NS 1 GM/250 ML 1 GM/250 ML BAG IV SCH ×3 (02:38→18:13)
[2017-05-03] MEDS: TYLENOL PO PRN ×2 (05:18→23:40)
[2017-05-03] MEDS: ZOSYN/NS 4.5GM/100ML 4.5 GM/100 ML VIAL IV SCH ×4 (05:23→23:27)
[2017-05-03] MEDS: NOVOLOG SUB-Q SCH ×4 (08:54→23:41)
[2017-05-03] MEDS ORDERED: NORVASC PO SCH (09:51)
--- NOTE | 2017-05-03 09:56 | Progress Note ---
Assessment and Plan Assessment and plan: Left foot infected diabetic foot ulcer and osteomyelitis 4th and 5th toes. MRI revealed osteomyelitis. Continue Zosyn and Vancomycin. ID Physicain and Dr. Pradhan, surgeon following. Diabetes mellitus type 2 : fair. cont Novolin 70/30 to 22 Units bid . Continue acuchecks AC & HS with ISS Hypertension. Fair. decrease Norvasc 5 mg po daily. unclear why patient is not on ACEI or ARB. ( no hx of allergy)will start on lisinopril 10 mg Normocytic anemia: H&H stable DVT prophylaxis with Lovenox. Subjective Date of service: 05/03/17 Principal diagnosis: diabetic foot infection Interval history: Patient is awake and alert Offers no specific complaints and denies any pain in the foot ID and general surgery note reviewed and appreciated Objective - Constitutional Vitals: Vital Signs - 12hr 05/02/17 05/02/17 05/03/17 22:00 23:02 00:02 Temperature Pulse Rate Respiratory 20 20 Rate Respiratory 20 Rate [Left Leg] Blood Pressure O2 Sat by Pulse Oximetry 05/03/17 05/03/17 05/03/17 05:18 06:18 07:57 Temperature 98.3 F Pulse Rate 83 Respiratory 22 20 20 Rate Respiratory Rate [Left Leg] Blood Pressure 137/83 O2 Sat by Pulse 97 Oximetry General appearance: Present: no acute distress - EENT Eyes: PERRL, EOM intact ENT: hearing intact, clear oral mucosa, no thrush - Neck Neck: supple, normal ROM, no masses or JVD - Respiratory Respiratory effort: normal Respiratory: bilateral: CTA - Cardiovascular Rhythm: regular Heart Sounds: Present: S1 & S2 Extremity abnormal: edema (left foot with open wound under the fourth toe and minimal discharge) - Gastrointestinal General gastrointestinal: Present: soft, non-tender Rectal Exam: deferred - Musculoskeletal Musculoskeletal: strength equal bilaterally - Neurologic Neurologic: no focal deficits - Psychiatric Psychiatric: appropriate mood/affect - Labs CBC & Chem 7: 05/02/17 05:28 05/02/17 05:28 Labs: Abnormal lab results 05/02/17 05/02/17 05/03/17 Range/Units 11:33 16:22 07:13 POC Glucose 234 H 147 H 252 H (70-105)
[2017-05-03] MEDS ORDERED: ZESTRIL PO SCH ×2 (10:00)
[2017-05-03] MEDS: NACL 0.9% 1000 ML 1,000 ML IV SCH (10:46)
[2017-05-03] MEDS: NORVASC PO SCH (10:48)
[2017-05-03] MEDS: ZESTRIL PO SCH (10:48)
[2017-05-03] MEDS: LOVENOX SUB-Q SCH (10:53)
--- NOTE | 2017-05-03 10:59 | XRay Report ---
Portable chest: Line placement. A left PICC line has been introduced. The tip is in the right atrium. Withdrawing approximately [address] it in the mid SVC. The mediastinal contour is unremarkable. The lungs are clear. Impression: PICC line tip in right atrium.
--- NOTE | 2017-05-03 13:14 | XRay Report ---
Portable chest: PICC line positioning. Comparison is made to the prior examination of 10:40 AM. The left PICC line has been withdrawn from the right atrium and is currently in good position near the mid SVC. The cardiopulmonary findings are not otherwise remarkable or changed.
--- NOTE | 2017-05-03 16:43 | Progress Note ---
Assessment and Plan Assessment: 1) Left diabetic foot puncture ulcer and forth and fifth toes ulcers/ ostemyelitis -MRI showed 4&5th toes osteomyelitis and small phlegmonous collection plantar to the 4th/5th otes extending to soft tissue webs spaces -CRP=1 -Art US normal 2) DM: uncontrolled A1C=11 3) Non insurance status Plan: -continue zosyn and vancomycin for now -upon discharge will arrange - zosyn 4.5 g IV q 8h and zyvox 600 mg PO q12h total 4 weeks until 05/27/17. If a tissue culture isolates an organism we will be able to narrow down. Thank you [place] for your consultation, will follow up with you. Lovely Avila MD Infectious Diseases Specialist [facility] ([facility]) M [phone] O [phone] Subjective Date of service: 05/03/17 Principal diagnosis: diabetic foot infection Interval history: Feels better, foot pain resolved. No fever. Microbiology: Blood cultures: 04/29 ngtd Urine cultures: Current Antimicrobials: Zosyn 04/29 Vancomycin 04/29 Objective - Exam Narrative Exam: General appearance: Alert in NAD, conversant Eyes: anicteric sclerae, moist conjunctivae; no lid-lag; PERRLA HENT: Atraumatic; oropharynx clear Neck: Trachea midline; supple, no thyromegaly or lymphadenopathy Lungs: CTA CV: RRR Abdomen: Soft, non-tender; no masses or hepatosplenomegaly Extremities: left foot mid sole edema/tenderness with puncture wound draining purulence, Fourth and fifth toe with interdigital ulcers/maceration Skin: Normal temperature, turgor and texture; no rash, ulcers or subcutaneous nodules Psych: Appropriate affect, alert and oriented to person, place and time. Neuro: alert and oriented x 3. Moving all extermities Lines: No CVL / PICC - Constitutional Vitals: Vital Signs Temp Pulse Resp BP Pulse Ox 99.0 F 98 H 20 134/85 100 05/03/17 15:08 05/03/17 15:08 05/03/17 15:08 05/03/17 15:08 05/03/17 15:08 Temperature -Last 24 Hours Temperature 99.0 F Temperature 98.3 F - Labs CBC & Chem 7: 05/02/17 05:28 05/02/17 05:28 Labs: Abnormal lab results 05/03/17 05/03/17 Range/Units 07:13 11:07 POC Glucose 252 H 321 H (70-105)
[2017-05-03] MEDS: MORPHINE IV PRN (23:27)
[2017-05-04] MEDS: VANCOMYCIN/NS 1 GM/250 ML 1 GM/250 ML BAG IV SCH ×2 (01:25→11:21)
[2017-05-04 06:10] LABS: Hematocrit 31.9 % (35.5-45.6); Mean Corpuscular HGB Conc 35 % (32-34); Mean Corpuscular Hemoglobin 34 pg (28-32); Mean Corpuscular Volume 98 fl (84-94); Platelet Count 244 K/mm3 (140-440); Red Blood Count 3.25 M/mm3 (3.65-5.03); Red Cell Distribution Width 14.6 % (13.2-15.2)
[2017-05-04 06:31] LABS: BUN/Creatinine Ratio 18; Blood Urea Nitrogen 9 mg/dL (9-20); Calcium 8.4 mg/dL (8.4-10.2); Hemolysis Index 1
[2017-05-04] MEDS: ZOSYN/NS 4.5GM/100ML 4.5 GM/100 ML VIAL IV SCH ×3 (06:58→18:38)
[2017-05-04] MEDS: MORPHINE IV PRN ×2 (07:26→17:06)
[2017-05-04] MEDS: NOVOLOG SUB-Q SCH ×4 (08:54→21:46)
[2017-05-04] MEDS: TYLENOL PO PRN ×2 (09:02→22:29)
[2017-05-04] MEDS: NORVASC PO SCH (10:09)
[2017-05-04] MEDS: ZESTRIL PO SCH (10:09)
[2017-05-04] MEDS: LOVENOX SUB-Q SCH (10:09)
--- NOTE | 2017-05-04 11:58 | Progress Note ---
Assessment and Plan Assessment: 1) Left diabetic foot puncture ulcer and forth and fifth toes ulcers/ osteomyelitis -MRI showed 4&5th toes osteomyelitis and small phlegmonous collection plantar to the 4th/5th otes extending to soft tissue webs spaces -CRP=1 -Art US normal 2) DM: uncontrolled A1C=11 3) Non insurance status Plan: -continue zosyn and vancomycin for now -upon discharge will arrange - zosyn 4.5 g IV q 8h and zyvox 600 mg PO q12h total 4 weeks until 05/27/17. If a tissue culture isolates an organism we will be able to narrow down Thank you Thalia for your consultation, will follow up with you. Lovely Avila MD Infectious Diseases Specialist [facility] [phone] O [phone] Subjective Date of service: 05/04/17 Principal diagnosis: diabetic foot infection Interval history: Feels better, foot pain resolved. No fever. Microbiology: Blood cultures: 04/29 ngtd Urine cultures: Current Antimicrobials: Zosyn 04/29 Vancomycin 04/29 Objective - Exam Narrative Exam: General appearance: Alert in NAD, conversant Eyes: anicteric sclerae, moist conjunctivae; no lid-lag; PERRLA HENT: Atraumatic; oropharynx clear Neck: Trachea midline; supple, no thyromegaly or lymphadenopathy Lungs: CTA CV: RRR Abdomen: Soft, non-tender; no masses or hepatosplenomegaly Extremities: left foot mid sole edema/tenderness with puncture wound draining purulence, Fourth and fifth toe with interdigital ulcers/maceration Skin: Normal temperature, turgor and texture; no rash, ulcers or subcutaneous nodules Psych: Appropriate affect, alert and oriented to person, place and time. Neuro: alert and oriented x 3. Moving all extermities Lines: No CVL / PICC - Constitutional Vitals: Vital Signs Temp Pulse Resp BP Pulse Ox 98.9 F 81 20 147/86 97 05/04/17 08:54 05/04/17 08:54 05/04/17 10:00 05/04/17 10:09 05/04/17 08:54 Temperature -Last 24 Hours Temperature 98.9 F Temperature 99.0 F Temperature 99.0 F - Labs CBC & Chem 7: 05/04/17 05:22 05/04/17 05:22 Labs: Abnormal lab results 05/03/17 05/03/17 05/04/17 Range/Units 16:42 21:38 05:22 RBC 3.25 L (3.65-5.03) M/mm3 Hgb 11.0 L (11.8-15.2) gm/dl Hct 31.9 L (35.5-45.6) % MCV 98 H (84-94) fl MCH 34 H (28-32) pg MCHC 35 H (32-34) % Potassium (3.6-5.0) mmol/L Carbon Dioxide (22-30) mmol/L Creatinine (0.8-1.5) mg/dL Glucose (75-100) mg/dL POC Glucose 267 H 121 H (70-105) 05/04/17 05/04/17 Range/Units 05:22 05:36 RBC (3.65-5.03) M/mm3 Hgb (11.8-15.2) gm/dl Hct (35.5-45.6) % MCV (84-94) fl MCH (28-32) pg MCHC (32-34) % Potassium 3.4 L (3.6-5.0) mmol/L Carbon Dioxide 21 L (22-30) mmol/L Creatinine 0.5 L (0.8-1.5) mg/dL Glucose 167 H (75-100) mg/dL POC Glucose 177 H (70-105)
--- NOTE | 2017-05-04 17:01 | Progress Note ---
Assessment and Plan - Left foot infected diabetic foot ulcer and osteomyelitis 4th and 5th toes. MRI revealed osteomyelitis. Continue Zosyn and Vancomycin. ID Physicain and Dr. Pradhan, Wound care surgeon following. - Diabetes mellitus type 2 : fair. cont Novolin 70/30 to 22 Units bid . Continue acuchecks AC & HS with ISS - Hypertension. Fair. decrease Norvasc 5 mg po daily. unclear why patient is not on ACEI or ARB. ( no hx of allergy)will start on lisinopril 10 mg - Normocytic anemia: of chronic disease H&H stable DVT prophylaxis with Lovenox. Subjective Date of service: 05/04/17 Principal diagnosis: diabetic foot infection Interval history: Pt seen and examined. Denies any fever. No new complaint. Objective - Constitutional Vitals: Vital Signs - 12hr 05/04/17 05/04/17 05/04/17 07:24 07:26 07:56 Temperature 98.3 F Pulse Rate 82 Respiratory 20 22 16 Rate Respiratory Rate [Left Leg] Blood Pressure 152/90 Blood Pressure [Right] O2 Sat by Pulse 99 Oximetry 05/04/17 05/04/17 05/04/17 08:54 09:02 10:00 Temperature 98.9 F Pulse Rate 81 Respiratory 20 16 Rate Respiratory 20 Rate [Left Leg] Blood Pressure Blood Pressure 152/90 [Right] O2 Sat by Pulse 97 Oximetry 05/04/17 05/04/17 05/04/17 10:02 10:09 15:16 Temperature 98.6 F Pulse Rate 85 Respiratory 16 18 Rate Respiratory Rate [Left Leg] Blood Pressure 147/86 134/80 Blood Pressure [Right] O2 Sat by Pulse 98 Oximetry General appearance: Present: no acute distress, well-nourished - EENT Eyes: PERRL, EOM intact - Neck Neck: supple, normal ROM - Respiratory Respiratory effort: normal Respiratory: bilateral: CTA - Cardiovascular Rhythm: regular Heart Sounds: Present: S1 & S2. Absent: gallop, rub Extremities: pulses intact, No edema, normal color, Full ROM - Gastrointestinal General gastrointestinal: Present: soft, non-tender, non-distended, normal bowel sounds - Integumentary Integumentary: clear, warm, dry - Musculoskeletal Musculoskeletal: 1, strength equal bilaterally - Neurologic Neurologic: moves all extremities - Psychiatric Psychiatric: memory intact, appropriate mood/affect, intact judgment & insight - Labs CBC & Chem 7: 05/04/17 05:22 05/04/17 05:22 Labs: Abnormal lab results 05/03/17 05/04/17 05/04/17 Range/Units 21:38 05:22 05:22 RBC 3.25 L (3.65-5.03) M/mm3 Hgb 11.0 L (11.8-15.2) gm/dl Hct 31.9 L (35.5-45.6) % MCV 98 H (84-94) fl MCH 34 H (28-32) pg MCHC 35 H (32-34) % Potassium 3.4 L (3.6-5.0) mmol/L Carbon Dioxide 21 L (22-30) mmol/L Creatinine 0.5 L (0.8-1.5) mg/dL Glucose 167 H (75-100) mg/dL POC Glucose 121 H (70-105) 05/04/17 05/04/17 05/04/17 Range/Units 05:36 11:46 16:45 RBC (3.65-5.03) M/mm3 Hgb (11.8-15.2) gm/dl Hct (35.5-45.6) % MCV (84-94) fl MCH (28-32) pg MCHC (32-34) % Potassium (3.6-5.0) mmol/L Carbon Dioxide (22-30) mmol/L Creatinine (0.8-1.5) mg/dL Glucose (75-100) mg/dL POC Glucose 177 H 290 H 178 H (70-105)
[2017-05-04] MEDS: VANCOMYCIN 1,500 MG in NACL 0.9% 500 ML 500 ML IV SCH (21:43)
[2017-05-05] MEDS: ZOSYN/NS 4.5GM/100ML 4.5 GM/100 ML VIAL IV SCH ×5 (00:48→23:21)
[2017-05-05] MEDS: VANCOMYCIN 1,500 MG in NACL 0.9% 500 ML 500 ML IV SCH ×3 (04:18→21:01)
[2017-05-05] MEDS: MORPHINE IV PRN ×4 (05:45→23:21)
[2017-05-05] MEDS: TYLENOL PO PRN ×2 (07:33→21:00)
[2017-05-05] MEDS: NOVOLOG SUB-Q SCH ×4 (07:33→21:55)
[2017-05-05] MEDS: LOVENOX SUB-Q SCH (10:01)
[2017-05-05] MEDS: NORVASC PO SCH (10:02)
[2017-05-05] MEDS: ZESTRIL PO SCH (10:02)
--- NOTE | 2017-05-05 11:34 | Progress Note ---
Assessment and Plan Assessment: 1) Left diabetic foot puncture ulcer and forth and fifth toes ulcers/ osteomyelitis -MRI showed 4&5th toes osteomyelitis and small phlegmonous collection plantar to the 4th/5th otes extending to soft tissue webs spaces -CRP=1 -Art US normal 2) DM: uncontrolled A1C=11 3) Non insurance status Plan: -continue zosyn and vancomycin for now -upon discharge will arrange - zosyn 4.5 g IV q 8h and zyvox 600 mg PO q12h total 4 weeks until 05/27/17. If a tissue culture isolates an organism we will be able to narrow down I am signing off Thank you Thalia for your consultation, will follow up with you. Lovely Avila MD Infectious Diseases Specialist [facility] [phone] O [phone] Subjective Date of service: 05/05/17 Principal diagnosis: diabetic foot infection Interval history: Feels better. No fever. Microbiology: Blood cultures: 04/29 ngtd Urine cultures: Current Antimicrobials: Zosyn 04/29 Vancomycin 04/29 Objective - Exam Narrative Exam: General appearance: Alert in NAD, conversant Eyes: anicteric sclerae, moist conjunctivae; no lid-lag; PERRLA HENT: Atraumatic; oropharynx clear Neck: Trachea midline; supple, no thyromegaly or lymphadenopathy Lungs: CTA CV: RRR Abdomen: Soft, non-tender; no masses or hepatosplenomegaly Extremities: left foot mid sole edema/tenderness with puncture wound draining purulence, Fourth and fifth toe with interdigital ulcers/maceration Skin: Normal temperature, turgor and texture; no rash, ulcers or subcutaneous nodules Psych: Appropriate affect, alert and oriented to person, place and time. Neuro: alert and oriented x 3. Moving all extermities Lines: No CVL / PICC - Constitutional Vitals: Vital Signs Temp Pulse Resp BP Pulse Ox 99.1 F 85 16 140/90 99 05/05/17 07:28 05/05/17 07:28 05/05/17 08:33 05/05/17 10:02 05/05/17 07:28 Temperature -Last 24 Hours Temperature 99.1 F Temperature 98.6 F Temperature 98.6 F - Labs CBC & Chem 7: 05/04/17 05:22 05/04/17 05:22 Labs: Abnormal lab results 05/04/17 05/04/17 05/05/17 Range/Units 11:46 16:45 06:00 POC Glucose 290 H 178 H 146 H (70-105)
--- NOTE | 2017-05-05 16:49 | Progress Note ---
Assessment and Plan - Left foot infected diabetic foot ulcer and osteomyelitis 4th and 5th toes. MRI revealed osteomyelitis. Continue Zosyn and Vancomycin. ID Physicain and Dr. Pradhan, Wound care surgeon following. - Diabetes mellitus type 2 : fair. cont Novolin 70/30 to 22 Units bid . Continue acuchecks AC & HS with ISS - Hypertension. Fair. decrease Norvasc 5 mg po daily. unclear why patient is not on ACEI or ARB. ( no hx of allergy)will start on lisinopril 10 mg - Normocytic anemia: of chronic disease H&H stable DVT prophylaxis with Lovenox. Disposition: The PICC line placement and home IV antibiotic therapy and after. Subjective Date of service: 05/05/17 Principal diagnosis: diabetic foot infection Interval history: Patient seen and examined. Laboratory and radiological data. No new complaints. Pt seen and examined. Denies any fever. Objective - Constitutional Vitals: Vital Signs - 12hr 05/05/17 05/05/17 05/05/17 07:00 07:28 07:33 Temperature 99.1 F Pulse Rate 85 Respiratory 16 16 16 Rate Blood Pressure 144/93 O2 Sat by Pulse 99 Oximetry 05/05/17 05/05/17 05/05/17 08:33 10:02 16:09 Temperature 99.1 F Pulse Rate 89 Respiratory 16 16 Rate Blood Pressure 140/90 154/93 O2 Sat by Pulse 97 Oximetry General appearance: Present: no acute distress, well-nourished - EENT Eyes: PERRL, EOM intact - Neck Neck: supple, normal ROM - Respiratory Respiratory effort: normal Respiratory: bilateral: CTA - Cardiovascular Rhythm: regular Heart Sounds: Present: S1 & S2. Absent: gallop, rub Extremities: pulses intact, No edema, normal color, Full ROM - Gastrointestinal General gastrointestinal: Present: soft, non-tender, non-distended, normal bowel sounds - Integumentary Integumentary: clear, warm, dry - Musculoskeletal Musculoskeletal: 1, strength equal bilaterally - Neurologic Neurologic: moves all extremities - Psychiatric Psychiatric: appropriate mood/affect, intact judgment & insight - Labs CBC & Chem 7: 05/04/17 05:22 05/04/17 05:22 Labs: Abnormal lab results 05/04/17 05/05/17 05/05/17 Range/Units 16:45 06:00 11:59 POC Glucose 178 H 146 H 310 H (70-105) 05/05/17 Range/Units 16:13 POC Glucose 292 H (70-105)
[2017-05-06] MEDS: VANCOMYCIN 1,500 MG in NACL 0.9% 500 ML 500 ML IV SCH ×3 (03:34→21:11)
[2017-05-06] MEDS: TYLENOL PO PRN ×2 (05:19→18:41)
[2017-05-06] MEDS: ZOSYN/NS 4.5GM/100ML 4.5 GM/100 ML VIAL IV SCH ×4 (05:20→23:48)
[2017-05-06] MEDS: NOVOLOG SUB-Q SCH ×4 (08:30→23:48)
[2017-05-06] MEDS: LOVENOX SUB-Q SCH (10:17)
[2017-05-06] MEDS: NORVASC PO SCH (10:18)
[2017-05-06] MEDS: ZESTRIL PO SCH (10:18)
--- NOTE | 2017-05-06 11:23 | Progress Note ---
Assessment and Plan Assessment: 1) Left diabetic foot puncture ulcer and forth and fifth toes ulcers/ osteomyelitis -MRI showed 4&5th toes osteomyelitis and small phlegmonous collection plantar to the 4th/5th otes extending to soft tissue webs spaces -CRP=1 -Art US normal 2) DM: uncontrolled A1C=11 3) Non insurance status Plan: -continue zosyn and vancomycin for now -upon discharge will arrange - zosyn 4.5 g IV q 8h and zyvox 600 mg PO q12h total 4 weeks until 05/27/17. I am signing off Thank you Thalia for your consultation, will follow up with you. Lovely Avila MD Infectious Diseases Specialist [facility] M [phone] O [phone] Subjective Date of service: 05/06/17 Principal diagnosis: diabetic foot infection Interval history: Feels better. No fever. No complaints, wants to go home. Microbiology: Blood cultures: 04/29 ngtd Urine cultures: Current Antimicrobials: Zosyn 04/29 Vancomycin 04/29 Objective - Exam Narrative Exam: General appearance: Alert in NAD, conversant Eyes: anicteric sclerae, moist conjunctivae; no lid-lag; PERRLA HENT: Atraumatic; oropharynx clear Neck: Trachea midline; supple, no thyromegaly or lymphadenopathy Lungs: CTA CV: RRR Abdomen: Soft, non-tender; no masses or hepatosplenomegaly Extremities: left foot mid sole edema/tenderness with puncture wound draining purulence, Fourth and fifth toe with interdigital ulcers/maceration Skin: Normal temperature, turgor and texture; no rash, ulcers or subcutaneous nodules Psych: Appropriate affect, alert and oriented to person, place and time. Neuro: alert and oriented x 3. Moving all extermities Lines: No CVL / PICC - Constitutional Vitals: Vital Signs Temp Pulse Resp BP Pulse Ox 98.2 F 83 16 155/88 98 05/06/17 07:33 05/06/17 07:33 05/06/17 07:33 05/06/17 10:18 05/06/17 07:33 Temperature -Last 24 Hours Temperature 98.2 F Temperature 99.9 F Temperature 99.1 F - Labs CBC & Chem 7: 05/04/17 05:22 05/04/17 05:22 Labs: Abnormal lab results 05/05/17 05/05/17 05/05/17 Range/Units 11:59 16:13 21:21 POC Glucose 310 H 292 H 161 H (70-105) 05/06/17 Range/Units 05:41 POC Glucose 145 H (70-105)
--- NOTE | 2017-05-06 13:58 | Progress Note ---
Assessment and Plan Assessment and plan: Patient is a 47 years old male with past medical history of diabetes mellitus and hypertension presents to the emergency department with a chief complaint of left foot pain and swelling and purulent drainage - Left foot infected diabetic foot ulcer and osteomyelitis 4th and 5th toes. -case dw ID -continue zosyn and vancomycin for now -upon discharge will arrange - zosyn 4.5 g IV q 8h and zyvox 600 mg PO q12h total 4 weeks until 05/27/17. - Consult wound surgeon for possible debridement - Diabetes mellitus type 2 : fair. cont Novolin 70/30 to 22 Units bid . Continue acuchecks AC & HS with ISS - Hypertension. continue BP meds - Normocytic anemia: of chronic disease H&H stable DVT prophylaxis with Lovenox. Disposition: The PICC line placement and home IV antibiotic therapy and after. History Interval history: no fever , chills, cp, sob, n/v or diarrhea, interval decrease in left foot pain and drainage Hospitalist Physical - Constitutional Vitals: Temp Pulse Resp BP Pulse Ox 98.2 F 83 16 155/88 98 05/06/17 07:33 05/06/17 07:33 05/06/17 07:33 05/06/17 10:18 05/06/17 07:33 General appearance: Present: no acute distress, well-nourished - EENT Eyes: Present: PERRL ENT: hearing intact - Neck Neck: Present: supple - Respiratory Respiratory effort: normal Respiratory: bilateral: CTA - Cardiovascular Rhythm: regular Heart Sounds: Present: S1 & S2 - Extremities Extremities: no ischemia Extremity abnormal: erythema, other (ulceration and mucopurulent drainage from under left 4th and 5th toes, another 2x2 ulcer on mid plantar left foot) Peripheral Pulses: within normal limits - Abdominal General gastrointestinal: soft, non-tender - Integumentary Integumentary: Present: clear, warm - Psychiatric Psychiatric: appropriate mood/affect, intact judgment & insight - Neurologic Neurologic: CNII-XII intact, moves all extremities Results - Labs CBC & Chem 7: 05/04/17 05:22 05/04/17 05:22 Labs: Laboratory Last Values WBC 9.8 K/mm3 (4.5-11.0) 05/04/17 05:22 RBC 3.25 M/mm3 (3.65-5.03) L 05/04/17 05:22 Hgb 11.0 gm/dl (11.8-15.2) L 05/04/17 05:22 Hct 31.9 % (35.5-45.6) L 05/04/17 05:22 MCV 98 fl (84-94) H 05/04/17 05:22 MCH 34 pg (28-32) H 05/04/17 05:22 MCHC 35 % (32-34) H 05/04/17 05:22 RDW 14.6 % (13.2-15.2) 05/04/17 05:22 Plt Count 244 K/mm3 (140-440) 05/04/17 05:22 Lymph % (Auto) 24.8 % (13.4-35.0) 04/28/17 22:45 [place] % (Auto) 6.9 % (0.0-7.3) 04/28/17 22:45 Eos % (Auto) 2.2 % (0.0-4.3) 04/28/17 22:45 Baso % (Auto) 1.0 % (0.0-1.8) 04/28/17 22:45 Lymph # 2.3 K/mm3 (1.2-5.4) 04/28/17 22:45 [place] # 0.6 K/mm3 (0.0-0.8) 04/28/17 22:45 Eos # 0.2 K/mm3 (0.0-0.4) 04/28/17 22:45 Baso # 0.1 K/mm3 (0.0-0.1) 04/28/17 22:45 Seg Neutrophils % 65.1 % (40.0-70.0) 04/28/17 22:45 Seg Neutrophils # 6.0 K/mm3 (1.8-7.7) 04/28/17 22:45 VBG pH 7.464 (7.320-7.420) H 04/29/17 06:47 Sodium 138 mmol/L (137-145) 05/04/17 05:22 Potassium 3.4 mmol/L (3.6-5.0) L 05/04/17 05:22 Chloride 103.6 mmol/L (98-107) 05/04/17 05:22 Carbon Dioxide 21 mmol/L (22-30) L 05/04/17 05:22 Anion Gap 17 mmol/L 05/04/17 05:22 BUN 9 mg/dL (9-20) 05/04/17 05:22 Creatinine 0.5 mg/dL (0.8-1.5) L 05/04/17 05:22 Estimated GFR > 60 ml/min 05/04/17 05:22 BUN/Creatinine Ratio 18 % 05/04/17 05:22 Glucose 167 mg/dL (75-100) H 05/04/17 05:22 POC Glucose 276 (70-105) H 05/06/17 11:54 Hemoglobin A1c 11.4 % (4-6) H 04/30/17 05:49 Lactic Acid 1.90 mmol/L (0.7-2.0) 04/28/17 22:45 Calcium 8.4 mg/dL (8.4-10.2) 05/04/17 05:22 C-Reactive Protein 1.00 mg/dL (0.00-1.30) 04/30/17 08:17 Vancomycin Trough 10.3 ug/mL (5.0-20.0) 05/04/17 10:00
[2017-05-06] MEDS: MORPHINE IV PRN (21:09)
[2017-05-07] MEDS: VANCOMYCIN 1,500 MG in NACL 0.9% 500 ML 500 ML IV SCH (04:47)
[2017-05-07] MEDS: ZOSYN/NS 4.5GM/100ML 4.5 GM/100 ML VIAL IV SCH (06:44)
[2017-05-07] MEDS: MORPHINE IV PRN (06:48)
[2017-05-07 07:43] VITALS: BP 146/87
[2017-05-07] MEDS: NOVOLOG SUB-Q SCH (09:22)
[2017-05-07] MEDS: TYLENOL PO PRN (09:30)
--- NOTE | 2017-05-07 10:54 | Discharge Summary ---
Providers - Providers Date of Admission: 04/29/17 09:48 Attending physician: KATIE DELGADO MD 04/29/17 10:02 Consult to Physician [CONS] Routine Consulting Provider: LOVELY DEAL Reason For Exam: left foot cellulitis Place consult to:: Jacques Notified:: yes Phone number called:: [phone] If yes, spoke with:: DR Hanna Time called:: 11:00 05/01/17 10:56 Consult to PICC Line RN [CONS] Urgent Reason For Exam: IV abx for 4 weeks Type Line:: PICC 05/01/17 10:58 Consult to Case Management [CONS] Stat Services Needed at Discharge: Other Notified:: branch operations coordinator Additional Physician Instructions: [facility] MD Marry Bella [phone] O [phone] OUTPATIENT PARENTERAL ANTIBIOTIC THERAPY ORDERS Diagnoses: left foot diabetic ulcer with osteomyelitis / abscess Antimicrobial administration: zosyn 4.5 g IV q 8h and zyvox 600 mg PO q12h total 4 weeks until 05/27/17. Lines: PICC Lab monitoring: CBC, CMP, CRP trough once a week preferly on Wednesday morning. Please fax results to [phone] and call [phone] for critical lab results. Lovely Hanna Date: 05/01/17 05/04/17 13:50 Consult to Wound/ET Nurse [CONS] Urgent Reason For Exam: wound eval 05/06/17 22:29 Consult to Physician [CONS] Routine Consulting Provider: EVANS SINGH Reason For Exam: left foot infection Place consult to:: dr. singh Notified:: office Phone number called:: Was contact made?: Yes If yes, spoke with:: jose Time called:: 10:06 Primary care physician: SIVAN CISNEROS Hospitalization Reason for admission: left foot osteomyelitis Condition: Stable Pertinent studies: MRI left 4th and 5th toe osteomyelitis Hospital course: Patient is a 47 years old male with past medical history of diabetes mellitus and hypertension presents to the emergency department with a chief complaint of left foot pain and swelling. The pain and swelling began 2 month ago he stepped on a nail through his shoe. Patient went to [facility] 2 weeks ago but they did not gave him any prescription. Patient does not know if they gave him Tdap shot. He states over the past week 10 days he noticed pus drainage from the foot and the swelling became large with erythema.The pain was described as aching. The pain continued to gradually increase in severity to an 10/10 today to the point cannot walk without pain. The pain was exacerbated with walking or standing. Patient reported subjective fever and chills. Patient was admitted and was treated with IV vancomycin and zosyn. ID was consulted and recommend to continue with IV zosyn and po zyvox for a total of 4 weeks. Case management arranged home health for the continuation of IV medications and patient was given a script for Zyvox. patient was advised about strict control of blood sugar. patient will be followed by his PCP as an O/P. aptient was hemodynamcically stable at the time of discharge. 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 insulin; Z79.4 - terminal gauger supervisor (current) use of insulin; Z79.4 - terminal gauger supervisor (current) use of insulin (4) Hypertension Status: Chronic Core Measure Documentation - Palliative Care Palliative Care/ Comfort Measures: Not Applicable - Core Measures Any of the following diagnoses?: none Exam - Constitutional Vitals: Temp Pulse Resp BP Pulse Ox 97.8 F 72 20 146/87 99 05/07/17 07:15 05/07/17 07:15 05/07/17 07:15 05/07/17 07:15 05/07/17 07:15 General appearance: Present: no acute distress - EENT Eyes: Present: PERRL, EOM intact ENT: hearing intact, clear oral mucosa - Neck Neck: Present: supple, normal ROM - Respiratory Respiratory: negative: CTA (and percussion) - Cardiovascular Rhythm: regular Heart Sounds: Present: S1 & S2 - Extremities Extremities: no ischemia, No edema, Full ROM Peripheral Pulses: within normal limits - Abdominal General gastrointestinal: Present: soft, tender, non-distended - Integumentary Integumentary: Present: clear, warm, dry - Musculoskeletal Musculoskeletal: strength equal bilaterally - Psychiatric Psychiatric: appropriate mood/affect - Neurologic Neurologic: CNII-XII intact - Allied Health Allied health notes reviewed: case management Plan Activity: no restrictions Weight Bearing Status: Weight Bear as Tolerated Diet: low cholesterol, low salt, diabetic Follow up with: SIVAN CISNEROS MD [Primary Care Provider] - 7 Days Prescriptions: amLODIPine [Norvasc] 5 mg PO QDAY #30 tablet Insulin NPH/Regular [NovoLIN 70/30] 22 unit SUB-Q BIDDIAB #1 vial Linezolid [Zyvox] 600 mg PO BID #60 tablet Lisinopril [Zestril TAB] 10 mg PO QDAY #30 tablet
[2017-05-07] MEDS: NORVASC PO SCH (11:05)
[2017-05-07] MEDS: LOVENOX SUB-Q SCH (11:06)
[2017-05-07] MEDS: ZESTRIL PO SCH (11:06)
== END 2017-05-07 12:28 | disposition home health service (06) | DRG 638 ==
LOC: ED 22:03 → 3A 04-29 09:48
PROVIDERS: ADMIT Family Medicine; ATTEND Internal Medicine
PROC: 3E0234Z Introduction of Serum, Toxoid and Vaccine into Muscle, Percutaneous Approach (ICD-10-PCS; principal; 2017-04-30)
DX: E11.69 Type 2 diabetes mellitus with other specified complication (principal); L03.116 Cellulitis of left lower limb; E87.1 Hypo-osmolality and hyponatremia; M86.172 Other acute osteomyelitis, left ankle and foot; Z23 Encounter for immunization; I10 Essential (primary) hypertension; Z87.891 Personal history of nicotine dependence; Z82.49 Family history of ischemic heart disease and other diseases of the circulatory system; E11.621 Type 2 diabetes mellitus with foot ulcer; L97.529 Non-pressure chronic ulcer of other part of left foot with unspecified severity; D64.9 Anemia, unspecified
CPT/HCPCS: 36415; 71010; 80048; 80202; 82140; 82805; 82962; 83036; 85025; 85027; 86140; 87040; 90686; 90715; 90732; 93925; A9577; J1650; J1815; J2270; J2405; J2543; J3010; J3370; J7030; J7040